=== PATIENT | female | born 1945 | race Caucasian/White ===

== ENCOUNTER → 2023-12-31 | Outpatient (CLI) | payer OTHER, MEDICARE | END | disposition home or self-care (01) | LOC: SHCH 09:51 | PROVIDERS: ATTEND Internal Medicine Cardiovascular Disease | DX: I82.511 Chronic embolism and thrombosis of right femoral vein (principal); I87.2 Venous insufficiency (chronic) (peripheral) | CPT/HCPCS: 93971 ==

== ENCOUNTER → 2024-03-03 | Outpatient (CLI) | payer OTHER, MEDICARE ==
--- NOTE | 2024-03-04 17:11 | HMCSR ---
APPROVED REPORT Left Lower Extremity Venous Study for DVT. Indications z09; s/p Varithena Left GSV 02/29/2024 Vein Imaging CFV (L): Normal flow, augmentation and compression. No evidence of DVT. 9.7mm 2017ms of reflux. SFJ (L): Normal flow, augmentation and compression. No evidence of DVT. FEM (L): Double vein with one occluded from distal thigh to proximal thigh. Second vein shows Normal flow, augmentation and compression with reflux. POP (L): Normal flow, augmentation and compression. No evidence of DVT.1128ms of reflux. DFV (L): Normal flow, augmentation and compression. No evidence of DVT. PTV (L): Normal flow, augmentation and compression. No evidence of DVT. Peroneals (L): Normal flow, augmentation and compression. No evidence of DVT. Technologist Impression Double SFV noted; with one occluded and other patent with reflux. Deep venous reflux noted in the CFV, SFV and Popliteal veins. Left GSV is closed from junction to mid calf. SFV mid 1739ms of reflux. SFV dst 1344ms of reflux. Conclusion Successful Varithena Deep venous reflux noted Clinical correlation recommended Conclusion Successful Varithena Deep venous reflux noted Clinical correlation recommended
== END | disposition home or self-care (01) ==
LOC: SHCH 08:21
PROVIDERS: ATTEND Internal Medicine Cardiovascular Disease
DX: I87.2 Venous insufficiency (chronic) (peripheral) (principal)
CPT/HCPCS: 93971